=== PATIENT | female | born 1995 | race Caucasian/White ===

== ENCOUNTER 2017-01-29 02:20 | Emergency (ER) | payer OTHER ==
[~2017-01-29] VITALS: Ht 167.6 cm; Wt 59.0 kg
[2017-01-29 02:36] VITALS: BP 132/91
--- NOTE | 2017-01-29 02:48 | NUR ---
PT TAKEN TO BED 5
--- NOTE | 2017-01-29 02:48 | NUR ---
Rambo brown in [facility] - 01/29/17 at 0250 by JEOVANNY PT TAKEN TO BED 3
--- NOTE | 2017-01-29 02:55 | NUR ---
PATIENT PRESENTS TO ED WITH S/P POST VACCINATION OF YELLOW FEVER LAST WEDNESDAY, DRASTIC CHANGES IN HER BODY SYSTEM, LIKE BODY ODOR, SHE WANTS, BLOOD, AND URINE TESTING. . PT DENIES N/V/D; SKIN IS PINK/WARM/DRY; AAOX4 WITH EVEN AND STEADY GAIT; LUNGS CLEAR BL; HR EVEN AND REGULAR; PT DENIES ANY FEVER, CP, SOB, OR COUGH AT THIS TIME; PATIENT STATES PAIN OF 0/10 AT THIS TIME; VSS; PATIENT POSITIONED FOR COMFORT; HOB ELEVATED; BEDRAILS UP X2; BED DOWN. ER MD MADE AWARE OF PT STATUS.
--- NOTE | 2017-01-29 03:27 | NUR ---
Dr. Carr evaluating patient at bedside.
[2017-01-29 03:30] VITALS: BP 132/91
--- NOTE | 2017-01-29 03:30 | NUR ---
Patient discharged with v/s stable. Written and verbal after care instructions given and explained by Dr. Carr. Patient verbalized understanding. Ambulatory with steady gait. All questions addressed prior to discharge. Advised to follow up with PMD.
== END 2017-01-29 03:30 | disposition home or self-care (01) ==
LOC: MED 02:20
DX: Z76.1 Encounter for health supervision and care of foundling (principal); R53.1 Weakness; J45.909 Unspecified asthma, uncomplicated